=== PATIENT | male | born 1965 | race Caucasian/White ===

== ENCOUNTER 2024-09-21 14:38 | Emergency (ER) | payer OTHER ==
[~2024-09-21] VITALS: Ht 180.3 cm; Wt 79.0 kg
[2024-09-21 14:40] VITALS: O2SAT 99
[2024-09-21] MEDS: PANTOPRAZOLE SODIUM 40 MG/VIAL IV ONE (15:21)
[2024-09-21] MEDS: ONDANSETRON HCL 4MG/2ML INJ IV ONE ×2 (15:21→21:50)
[2024-09-21] MEDS: MORPHINE SULFATE 4 MG/ML INJ (FOR IV/IM USE) IV ONE (15:23)
[2024-09-21] MEDS: SODIUM CHLORIDE 0.9% 1,000 ML IV ONE (15:23)
[2024-09-21 15:30] LABS: BASOPHILS % 0.4 % (0.0-2.0); DIFFERENTIAL COMMENT 0; EOSINOPHILS % 0.2 % (0.0-5.0); HEMATOCRIT. 47.2 % (42.0-52.0); HEMOGLOBIN. 15.2 g/dL (14.0-18.0); LYMPHOCYTES % 18.5 % (20.0-50.0); MEAN CORPUSCULAR HEMOGLOBIN 23.5 pg (28.0-32.0); MEAN CORPUSCULAR HGB CONC 32.1 g/dL (31.0-37.0); MEAN PLATELET VOLUME 8.9 fl (7.4-10.4); MONOCYTES % 5.9 % (2.0-8.0); PLATELET 182 x1000/uL (130-400); RED BLOOD CELL COUNT 6.46 mill/uL (4.7-6.1); RED CELL DISTRIBUTION WIDTH 14.2 % (11.6-14.6); WHITE BLOOD COUNT 4.9 x1000/uL (4.5-11.0)
[2024-09-21 15:35] LABS: CHLORIDE 103 mEq/L (98-107); POTASSIUM 3.5 mEq/L (3.5-5.1); SODIUM 138 mEq/L (136-145)
[2024-09-21 15:36] LABS: CALCIUM 9.9 mg/dL (8.7-10.4); CARBON DIOXIDE 29 mEq/L (21-32)
[2024-09-21 15:39] LABS: PROTHROMBIN TIME 11.6 sec (9.6-11.0)
[2024-09-21 15:41] LABS: CREATININE 1.4 mg/dL (0.6-1.3); GLUCOSE 111 mg/dL (70-105); UREA NITROGEN BLOOD 12 mg/dL (9-23)
[2024-09-21 15:43] LABS: ACETAMINOPHEN 69 ug/mL (10-30); ALANINE AMINOTRANSFERASE 109 IU/L (10-49); ALBUMIN 4.6 g/dL (3.2-4.8); ASPARTATE AMINOTRANSFERASE 124 IU/L (<34); BILIRUBIN DIRECT 0.9 mg/dL (<=3.0); BILIRUBIN TOTAL 2.1 mg/dL (0.1-1.0); CREATINE KINASE 493 IU/L (46-171); PROTEIN TOTAL 8.2 g/dL (6.0-8.3); TROPONIN I HIGH SENSITIVITY 13 ng/L (3.0-53)
[2024-09-21 15:44] LABS: ETHANOL BLOOD < 10 mg/dL (<10)
[2024-09-21 15:46] LABS: THYROID STIMULATING HORMONE 1.78 uIU/mL (0.55-4.78)
[2024-09-21] MEDS ORDERED: ACETYLCYSTEINE 200MG/ML 20% VIAL 30ML (INJ) IV ONE ×3 (17:30→18:45)
[2024-09-21] MEDS: IOHEXOL-300 100 ML BOTTLE ONE (17:46)
[2024-09-21] MEDS: ACETYLCYSTEINE IV NR (18:41)
[2024-09-21] MEDS: DEXT 5% IV NR (18:41)
[2024-09-21] MEDS: WATER IV NR (18:41)
[2024-09-21 19:20] LABS: TROPONIN I HIGH SENSITIVITY 10 ng/L (3.0-53)
[2024-09-21] MEDS: DEXT 5% IV SCH (20:02)
[2024-09-21] MEDS: WATER IV SCH (20:02)
[2024-09-21] MEDS: ACETYLCYSTEINE IV SCH (20:02)
[2024-09-21 21:27] VITALS: BP 130/81; PULSE 71; RESP 20; TEMP 36.66960; O2SAT 100
[2024-09-22] MEDS ORDERED: WATER IV SCH ×2
[2024-09-22] MEDS ORDERED: DEXTROSE 5% IV SCH ×2
[2024-09-22] MEDS ORDERED: ACETYLCYSTEINE IV SCH ×2
== END 2024-09-21 22:00 | disposition short-term general hospital (02) ==
LOC: ER 14:38 → EDBEDREQ 20:18 → EDBEDREQSVC 20:18 → ER 22:00
DX: T39.1X1A Poisoning by 4-Aminophenol derivatives, accidental (unintentional), initial encounter (principal); R74.01 Elevation of levels of liver transaminase levels; Y92.9 Unspecified place or not applicable
CPT/HCPCS: 80076; 80048; 80307; 80329; 80320; 82550; 83880; 83605; 83690; 84443; 85025; 85610; 86850; 86900; 86901; 87040; 84484; 36415; 71045; 74176; 96367; 96365; 96366; 96375; 96376; 99291; Q9967; J0132; J2405; J2470; J2270; J7060 ×2; Z7610 ×4; J7070; G0480

== ENCOUNTER 2025-01-12 09:54 | Emergency (ER) | payer OTHER ==
[~2025-01-12] VITALS: Ht 182.9 cm; Wt 87.0 kg
[2025-01-12 09:57] VITALS: O2SAT 97
[2025-01-12 10:56] LABS: BASOPHILS % 0.4 % (0.0-2.0); DIFFERENTIAL COMMENT 0; EOSINOPHILS % 1.1 % (0.0-5.0); HEMATOCRIT. 42.5 % (42.0-52.0); HEMOGLOBIN. 13.4 g/dL (14.0-18.0); LYMPHOCYTES % 19.5 % (20.0-50.0); MEAN CORPUSCULAR HEMOGLOBIN 22.9 pg (28.0-32.0); MEAN CORPUSCULAR HGB CONC 31.6 g/dL (31.0-37.0); MEAN CORPUSCULAR VOLUME 72.5 fL (80.0-94.0); MEAN PLATELET VOLUME 7.7 fl (7.4-10.4); PLATELET 210 x1000/uL (130-400); RED BLOOD CELL COUNT 5.86 mill/uL (4.7-6.1); RED CELL DISTRIBUTION WIDTH 15.1 % (11.6-14.6); WHITE BLOOD COUNT 6.1 x1000/uL (4.5-11.0)
[2025-01-12 11:02] LABS: CHLORIDE 101 mEq/L (98-107); POTASSIUM 4.7 mEq/L (3.5-5.1); SODIUM 137 mEq/L (136-145)
[2025-01-12 11:03] LABS: CARBON DIOXIDE 32 mEq/L (21-32)
[2025-01-12 11:04] LABS: CALCIUM 9.8 mg/dL (8.7-10.4)
[2025-01-12] MEDS: ACETAMINOPHEN 325MG TABLET PO ONE (11:04)
[2025-01-12] MEDS: ONDANSETRON 4MG ODT PO ONE (11:05)
[2025-01-12 11:08] LABS: CREATININE 1.2 mg/dL (0.6-1.3); GLUCOSE 137 mg/dL (70-105)
[2025-01-12 11:09] LABS: UREA NITROGEN BLOOD 8 mg/dL (9-23)
[2025-01-12 11:10] LABS: ALANINE AMINOTRANSFERASE 66 IU/L (10-49); ALBUMIN 4.5 g/dL (3.2-4.8); ASPARTATE AMINOTRANSFERASE 71 IU/L (<34); BILIRUBIN DIRECT 0.4 mg/dL (<=3.0)
[2025-01-12 11:11] LABS: BILIRUBIN TOTAL 1.1 mg/dL (0.1-1.0); PROTEIN TOTAL 8.1 g/dL (6.0-8.3)
[2025-01-12] MEDS: FAMOTIDINE 20MG TABLET PO ONE (11:30)
[2025-01-12 11:40] LABS: CLARITY URINE CLEAR (CLEAR); COLOR URINE YELLOW (YELLOW); GLUCOSE URINE NEGATIVE (NEGATIVE); KETONES URINE NEGATIVE (NEGATIVE); LEUKOCYTE ESTERASE URINE NEGATIVE (NEGATIVE); NITRITE URINE NEGATIVE (NEGATIVE); OCCULT BLOOD URINE NEGATIVE (NEGATIVE); PROTEIN URINE NEGATIVE (NEGATIVE); SPECIFIC GRAVITY URINE 1.003 (1.005-1.030); UROBILINOGEN URINE 0.2 E.U./dL (0.2-1.0)
[2025-01-12 11:57] LABS: ACETAMINOPHEN < 2 ug/mL (10-30)
[2025-01-12 12:03] LABS: ETHANOL BLOOD < 10 mg/dL (<10)
[2025-01-12 12:12] LABS: *AMPHETAMINES SCREEN URINE PRESUMPTIVE POSITIVE (NEGATIVE); *BENZODIAZEPINES SCREEN URINE NEGATIVE (NEGATIVE)
[2025-01-12 12:13] LABS: *BARBITURATES SCREEN URINE NEGATIVE (NEGATIVE); *COCAINE SCREEN URINE PRESUMPTIVE POSITIVE (NEGATIVE); CANNABINOID URINE SCREEN NEGATIVE (NEGATIVE); ECSTASY MDMA SCREEN URINE NEGATIVE (NEGATIVE); METHADONE URINE SCREEN NEGATIVE (NEGATIVE); OPIATES URINE SCREEN NEGATIVE (NEGATIVE); PHENCYCLIDINE URINE SCREEN NEGATIVE (NEGATIVE)
[2025-01-13 08:00] VITALS: BP 130/61; PULSE 68; RESP 16; TEMP 36.6; O2SAT 98
== END 2025-01-13 11:01 | disposition home or self-care (01) ==
LOC: ER 09:54
DX: R10.32 Left lower quadrant pain (principal); R44.3 Hallucinations, unspecified; I10 Essential (primary) hypertension; Z59.00 Homelessness unspecified; Z20.822 Contact with and (suspected) exposure to COVID-19
CPT/HCPCS: 80076; 80305; 80048; 81003; 80307; 80329; 80320; 83690; 85025; 86850; 86900; 86901; 36415; 74176; 99285; 87426; Q0162; G0480

== ENCOUNTER 2025-01-13 20:58 | Emergency (ER) | payer OTHER ==
[~2025-01-13] VITALS: Ht 185.4 cm; Wt 89.0 kg
[2025-01-13 21:04] VITALS: BP 124/75; PULSE 104; RESP 16; TEMP 36.9; O2SAT 98
[2025-01-13 21:51] LABS: BASOPHILS % 0.3 % (0.0-2.0); DIFFERENTIAL COMMENT 0; EOSINOPHILS % 1.1 % (0.0-5.0); HEMOGLOBIN. 13.9 g/dL (14.0-18.0); LYMPHOCYTES % 18.8 % (20.0-50.0); MEAN CORPUSCULAR HEMOGLOBIN 23.2 pg (28.0-32.0); MEAN CORPUSCULAR HGB CONC 31.6 g/dL (31.0-37.0); MEAN CORPUSCULAR VOLUME 73.4 fL (80.0-94.0); MONOCYTES % 8.2 % (2.0-8.0); NEUTROPHILS % 71.6 % (40.0-76.0); PLATELET 222 x1000/uL (130-400); RED CELL DISTRIBUTION WIDTH 14.8 % (11.6-14.6); WHITE BLOOD COUNT 7.3 x1000/uL (4.5-11.0)
[2025-01-13 21:57] LABS: CHLORIDE 101 mEq/L (98-107); SODIUM 140 mEq/L (136-145)
[2025-01-13 21:58] LABS: CALCIUM 9.6 mg/dL (8.7-10.4); CARBON DIOXIDE 30 mEq/L (21-32)
[2025-01-13 22:03] LABS: CREATININE 1.2 mg/dL (0.6-1.3); GLUCOSE 119 mg/dL (70-105); UREA NITROGEN BLOOD 14 mg/dL (9-23)
[2025-01-13 22:04] LABS: TROPONIN I HIGH SENSITIVITY 7 ng/L (3.0-53)
[2025-01-14 02:36] LABS: TROPONIN I HIGH SENSITIVITY 7 ng/L (3.0-53)
== END 2025-01-14 05:30 | disposition left against medical advice (07) ==
LOC: ER 20:58
DX: R07.89 Other chest pain (principal); I10 Essential (primary) hypertension
CPT/HCPCS: 36415; 71045; 80048; 84484; 85025; 93005; 99285

== ENCOUNTER 2025-03-18 15:53 | Emergency (ER) | payer OTHER ==
[~2025-03-18] VITALS: Ht 172.7 cm; Wt 64.0 kg
[2025-03-18 15:56] VITALS: O2SAT 98
[2025-03-18 16:45] LABS: BASOPHILS % 0.5 % (0.0-2.0); DIFFERENTIAL COMMENT 0; EOSINOPHILS % 1.2 % (0.0-5.0); HEMATOCRIT. 45.3 % (42.0-52.0); HEMOGLOBIN. 14.3 g/dL (14.0-18.0); LYMPHOCYTES % 22.9 % (20.0-50.0); MEAN CORPUSCULAR HEMOGLOBIN 22.9 pg (28.0-32.0); MEAN CORPUSCULAR HGB CONC 31.6 g/dL (31.0-37.0); MEAN CORPUSCULAR VOLUME 72.5 fL (80.0-94.0); MEAN PLATELET VOLUME 8.3 fl (7.4-10.4); MONOCYTES % 8.1 % (2.0-8.0); NEUTROPHILS % 67.3 % (40.0-76.0); PLATELET 208 x1000/uL (130-400); RED BLOOD CELL COUNT 6.24 mill/uL (4.7-6.1); RED CELL DISTRIBUTION WIDTH 14.7 % (11.6-14.6)
[2025-03-18] MEDS ORDERED: DICYCLOMINE 10 MG/5 ML ORAL SYR PO STA (16:49)
[2025-03-18 16:51] LABS: CHLORIDE 104 mEq/L (98-107); POTASSIUM 4.1 mEq/L (3.5-5.1); SODIUM 142 mEq/L (136-145)
[2025-03-18 16:52] LABS: CALCIUM 9.8 mg/dL (8.7-10.4); CARBON DIOXIDE 30 mEq/L (21-32)
[2025-03-18 16:57] LABS: CREATININE 1.1 mg/dL (0.6-1.3); GLUCOSE 106 mg/dL (70-105); UREA NITROGEN BLOOD 9 mg/dL (9-23)
[2025-03-18 16:58] LABS: ETHANOL BLOOD < 10 mg/dL (<10)
[2025-03-18 16:59] LABS: ALANINE AMINOTRANSFERASE 47 IU/L (10-49); ALBUMIN 4.4 g/dL (3.2-4.8); ASPARTATE AMINOTRANSFERASE 44 IU/L (<34); BILIRUBIN DIRECT 0.2 mg/dL (<=3.0); BILIRUBIN TOTAL 0.6 mg/dL (0.1-1.0)
[2025-03-18 17:00] LABS: PROTEIN TOTAL 7.9 g/dL (6.0-8.3)
[2025-03-18] MEDS: MAGNESIUM/ALUMINUM HYDROXIDE/SIMETHICONE 30ML UDC PO STA (17:13)
[2025-03-18] MEDS: ONDANSETRON 4MG ODT PO STA (17:13)
[2025-03-18] MEDS: DICYCLOMINE HCL 10MG CAPSULE PO NR (17:13)
[2025-03-18] MEDS: FAMOTIDINE 20MG TABLET PO ONE (17:13)
[2025-03-18] MEDS ORDERED: FAMO-135 MT (17:55)
[2025-03-18 18:03] VITALS: BP 124/83; PULSE 80; RESP 17; TEMP 36.6; O2SAT 100
[2025-03-18 18:19] LABS: PROTHROMBIN TIME 10.9 sec (9.6-11.0)
== END 2025-03-18 18:04 | disposition home or self-care (01) ==
LOC: ER 15:53
DX: K29.70 Gastritis, unspecified, without bleeding (principal); I10 Essential (primary) hypertension; Z79.899 Other long term (current) drug therapy
CPT/HCPCS: 80076; 80048; 80320; 83690; 85025; 85610; 36415; 99284; Q0162; G0480

== ENCOUNTER 2025-06-14 02:31 | Inpatient (IN) | payer OTHER ==
[~2025-06-14] VITALS: Ht 182.9 cm; Wt 77.1 kg
[2025-06-14] VITALS (7 sets, daily range): BP systolic 144; BP diastolic 81; PULSE 80–98; RESP 20; TEMP 36.9–37.2; O2SAT 95–96
[~2025-06-14 02:31] MED LIST: FAMO-135 MT
[2025-06-14] MEDS: ASPIRIN 325MG TABLET PO ONE (04:07)
[2025-06-14 04:23] LABS: BASOPHILS % 0.5 % (0.0-2.0); EOSINOPHILS % 0.4 % (0.0-5.0); HEMATOCRIT. 40.0 % (42.0-52.0); HEMOGLOBIN. 13.0 g/dL (14.0-18.0); LYMPHOCYTES % 24.5 % (20.0-50.0); MEAN PLATELET VOLUME 8.6 fl (7.4-10.4); MONOCYTES % 6.9 % (2.0-8.0); NEUTROPHILS % 67.7 % (40.0-76.0); PLATELET 185 x1000/uL (130-400); RED BLOOD CELL COUNT 5.58 mill/uL (4.7-6.1); RED CELL DISTRIBUTION WIDTH 17.1 % (11.6-14.6)
[2025-06-14 04:36] LABS: CREATININE 1.2 mg/dL (0.6-1.3); ETHANOL BLOOD < 10 mg/dL (<10); UREA NITROGEN BLOOD 11 mg/dL (9-23)
[2025-06-14 04:37] LABS: TROPONIN I HIGH SENSITIVITY 12 ng/L (3.0-53)
[2025-06-14] MEDS ORDERED: LIP40 MT (08:03)
[2025-06-14] MEDS ORDERED: AMLO-905 MT (08:03)
[2025-06-14] MEDS: INSULIN LISPRO 100 UNITS/ML SUBCUT SCH (08:10)
[2025-06-14] MEDS ORDERED: DEXTROSE 50% WATER 50ML SYRINGE IV PRN (08:15)
[2025-06-14] MEDS ORDERED: PANT40SU PO (08:32)
[2025-06-14] MEDS: BLOOD SUGAR DIAGNOSTIC STRIP TEST SCH (11:57)
[2025-06-14 12:17] LABS: PLATELET 189 x1000/uL (130-400); RED BLOOD CELL COUNT 5.75 mill/uL (4.7-6.1); RED CELL DISTRIBUTION WIDTH 17.2 % (11.6-14.6)
[2025-06-14 12:35] LABS: CREATININE 1.1 mg/dL (0.6-1.3); TRIGLYCERIDE 50 mg/dL (0-150); UREA NITROGEN BLOOD 9 mg/dL (9-23)
[2025-06-14 12:36] LABS: LDL CHOLESTEROL 66 mg/dL (5-100)
[2025-06-14] MEDS ORDERED: QUET25TA36 PO (15:08)
[2025-06-14] MEDS ORDERED: TRAZ-251 PO (15:08)
[2025-06-14 15:35] LABS: HEPATITIS C AB REACTIVE (Pos) (Negative)
[2025-06-14] MEDS: LABETALOL HCL 200MG TABLET PO SCH (16:09)
[2025-06-14] MEDS: AMLODIPINE 10MG TABLET PO SCH (16:10)
[2025-06-14] MEDS: ASPIRIN 81MG TABLET PO SCH (16:11)
[2025-06-14] MEDS: PANTOPRAZOLE 40MG DR TABLET PO SCH (16:11)
[2025-06-14 18:11] LABS: TRIGLYCERIDE 78.0 mg/dL (0-150)
[2025-06-14 18:12] LABS: LDL CHOLESTEROL 67.0 mg/dL (5-100)
[2025-06-14 18:14] LABS: T4 FREE 1.64 ng/dL (0.89-1.76)
[2025-06-14 19:35] LABS: CLARITY URINE CLEAR (CLEAR); COLOR URINE YELLOW (YELLOW); GLUCOSE URINE NEGATIVE (NEGATIVE); KETONES URINE TRACE (NEGATIVE); LEUKOCYTE ESTERASE URINE NEGATIVE (NEGATIVE); NITRITE URINE NEGATIVE (NEGATIVE); OCCULT BLOOD URINE NEGATIVE (NEGATIVE); PH URINE 6.0 (4.5-8.0); PROTEIN URINE NEGATIVE (NEGATIVE); SPECIFIC GRAVITY URINE 1.015 (1.005-1.030); UROBILINOGEN URINE 0.2 E.U./dL (0.2-1.0)
[2025-06-14 19:45] LABS: *AMPHETAMINES SCREEN URINE PRESUMPTIVE POSITIVE (NEGATIVE); *BENZODIAZEPINES SCREEN URINE NEGATIVE (NEGATIVE)
[2025-06-14 19:46] LABS: *BARBITURATES SCREEN URINE NEGATIVE (NEGATIVE); *COCAINE SCREEN URINE PRESUMPTIVE POSITIVE (NEGATIVE); CANNABINOID URINE SCREEN NEGATIVE (NEGATIVE); ECSTASY MDMA SCREEN URINE CONF.TEST INDICATED (NEGATIVE); METHADONE URINE SCREEN NEGATIVE (NEGATIVE); OPIATES URINE SCREEN NEGATIVE (NEGATIVE); PHENCYCLIDINE URINE SCREEN NEGATIVE (NEGATIVE)
[2025-06-14] MEDS: QUETIAPINE FUMARATE 25MG TABLET PO SCH (21:00)
[2025-06-14] MEDS: ATORVASTATIN CALCIUM 40MG TABLET PO SCH (21:00)
== END 2025-06-14 21:00 | disposition left against medical advice (07) | DRG 203 ==
LOC: ER 02:31 → 7WST 05:00 → EDBEDREQ 05:03 → EDBEDREQTM 05:03 → ENRESERV 05:20 → ER 06:01
PROVIDERS: ADMIT Internal Medicine; ATTEND Internal Medicine
DX: M94.0 Chondrocostal junction syndrome [Tietze] (principal); D64.9 Anemia, unspecified; E78.00 Pure hypercholesterolemia, unspecified; F10.90 Alcohol use, unspecified, uncomplicated; I10 Essential (primary) hypertension; F17.210 Nicotine dependence, cigarettes, uncomplicated; Y90.9 Presence of alcohol in blood, level not specified; Z53.29 Procedure and treatment not carried out because of patient's decision for other reasons
CPT/HCPCS: 36415; 71045; 80048; 80061; 80305; 80320; 81003; 82962; 83036; 83520; 84439; 84484; 85025; 85027; 85379; 86705; 87340; 93005; 99285; G0480